=== PATIENT | male | born 1965 | race Caucasian/White ===

== ENCOUNTER 2017-09-17 03:31 | Emergency (ER) | payer OTHER ==
[~2017-09-17] VITALS: Ht 177.8 cm; Wt 86.2 kg
--- NOTE | 2017-09-17 05:53 | ED Chest Pain ---
General Chief Complaint: General Problems/Pain Stated Complaint: CP Nursing Triage Note: patient states that after drinking a pot of coffee before work be had 3 brief pains in his left chest. this lasted approximately one second. Nursing Sepsis Screen: No Definite Risk Source: patient Exam Limitations: no limitations History of Present Illness Time seen by provider: 05:42 Initial Comments Patient presents to ER by private conveyance with chief complaint that he had some chest pain tonight. He went to work around 11 had taken a 325 mg aspirin at that time since he started that 3 weeks ago because he had a chest pain similar to this and got him worried restarted aspirin. He had a sharp twinge like a stabbing pain in the center of his chest lasted a few seconds when away and then was followed by another one. It Was not accompanied by cough, nausea, radiating pain, numbness, weakness, sweats, shortness of breath. He has no personal history of cardiac disease. He's never followed by Dr. Michele is not obviously high blood pressure or thyroid or diabetes. He says he has been healthy his whole life. After he started experiencing the chest pains indicative second aspirin about 1:30 in the morning. Approximate 4 hours ago. Allergies and Home Medications Allergies Coded Allergies: No Known Drug Allergies (Unverified , 09/17/17) Review of Systems Constitutional: No chills, No fever, No malaise Respiratory: Denies Cough, Denies Shortness of Air Cardiovascular: See HPI, Chest Pain, Denies Edema, Denies Palpitations, Denies Syncope Gastrointestinal: Denies Abdomen Distended, Denies Abdominal Pain, Denies Constipated, Denies Diarrhea, Denies Nausea Musculoskeletal: No back pain, No joint pain Skin: No pruritus, No rash Psychiatric/Neurological: Denies Headache, Denies Numbness, Denies Paresthesia Past Qclshjt-Ghrako-Eavyql Hx Patient Social History Alcohol Use: Denies Use Recreational Drug Use: No Smoking Status: Current Everyday Smoker Type Used: Cigarettes 2nd Hand Smoke Exposure: Yes Recent Foreign Travel: No Contact w/Someone Who Travel: No Recent Infectious Disease Expo: No Recent Hopitalizations: No Physical Abuse: No Sexual Abuse: No Seasonal Allergies Seasonal Allergies: No Surgeries History of Surgeries: No Respiratory History of Respiratory Disorde: No Cardiovascular History of Cardiac Disorders: No Neurological History of Neurological Disord: No Genitourinary History of Genitourinary Disor: No Gastrointestinal History of Gastrointestinal Di: No Musculoskeletal History of Musculoskeletal Dis: No Endocrine History of Endocrine Disorders: No HEENT History of HEENT Disorders: No Cancer History of Cancer: No Psychosocial History of Psychiatric Problem: No Suicide Risk Score: 0 Integumentary History of Skin or Integumenta: No Blood Transfusions History of Blood Disorders: No Physical Exam Vital Signs Vital Sign - Last 12Hours 09/17/17 03:45 Temp 98.0 Pulse 97 Resp 20 B/P (MAP) 130/95 (107) Pulse Ox 98 O2 Delivery Simple Mask Capillary Refill : Less Than 3 Seconds General Appearance: No Apparent Distress, WD/WN HEENT: PERRL/EOMI, Pharynx Normal Neck: Normal Inspection, Non Tender Respiratory: Chest Non Tender, Lungs Clear, Normal Breath Sounds, No Accessory Muscle Use, No Respiratory Distress Cardiovascular: Regular Rate, Rhythm, No Edema, No Gallop, No JVD, No Murmur, Normal Peripheral Pulses Gastrointestinal: Non Tender, Soft Neurologic/Psychiatric: Alert, Oriented x3 Skin: Normal Color, Warm/Dry Progress/Results/Core Measures Results/Orders Lab Results Laboratory Tests Test 09/17/17 05:57 Range/Units White Blood Count 5.7 4.3-11.0 10^3/uL Red Blood Count 4.96 4.35-5.85 10^6/uL Hemoglobin 15.9 13.3-17.7 G/DL Hematocrit 45 40-54 % Mean Corpuscular Volume 90 80-99 FL Mean Corpuscular Hemoglobin 32 25-34 PG Mean Corpuscular Hemoglobin Concent 36 32-36 G/DL Red Cell Distribution Width 12.4 10.0-14.5 % Platelet Count 254 130-400 10^3/uL Mean Platelet Volume 9.9 7.4-10.4 FL Neutrophils (%) (Auto) 71 42-75 % Lymphocytes (%) (Auto) 23 12-44 % Monocytes (%) (Auto) 5 0-12 % Eosinophils (%) (Auto) 1 0-10 % Basophils (%) (Auto) 1 0-10 % Neutrophils # (Auto) 4.0 1.8-7.8 X 10^3 Lymphocytes # (Auto) 1.3 1.0-4.0 X 10^3 Monocytes # (Auto) 0.3 0.0-1.0 X 10^3 Eosinophils # (Auto) 0.0 0.0-0.3 10^3/uL Basophils # (Auto) 0.0 0.0-0.1 10^3/uL Prothrombin Time 12.8 12.2-14.7 SEC INR Comment 1.0 0.8-1.4 Activated Partial Thromboplast Time 29 24-35 SEC Sodium Level 141 135-145 MMOL/L Potassium Level 4.0 3.6-5.0 MMOL/L Chloride Level 105 98-107 MMOL/L Carbon Dioxide Level 25 21-32 MMOL/L Anion Gap 11 5-14 MMOL/L Blood Urea Nitrogen 11 7-18 MG/DL Creatinine 0.93 0.60-1.30 MG/DL Estimat Glomerular Filtration Rate > 60 BUN/Creatinine Ratio 12 Glucose Level 106 H 70-105 MG/DL Calcium Level 9.9 8.5-10.1 MG/DL Magnesium Level 2.1 1.8-2.4 MG/DL Total Bilirubin 0.4 0.1-1.0 MG/DL Aspartate Amino Transf (AST/SGOT) 20 5-34 U/L Alanine Aminotransferase (ALT/SGPT) 27 0-55 U/L Alkaline Phosphatase 70 40-136 U/L Myoglobin 36.5 10.0-92.0 NG/ML Troponin I < 0.30 <0.30 NG/ML Total Protein 7.9 6.4-8.2 GM/DL Albumin 4.6 H 3.2-4.5 GM/DL My Orders Orders - HECTOR,SHAAN J Cbc With Automated Diff (09/17/17 05:47) Magnesium (09/17/17 05:47) Chest 1 View, Ap/Pa Only (09/17/17 05:47) Ekg Tracing (09/17/17 05:47) Cardiac Profile 1 (09/17/17 05:47) Comprehensive Metabolic Panel (09/17/17 05:47) Myoglobin Serum (09/17/17 05:47) Protime With Inr (09/17/17 05:47) Partial Thromboplastin Time (09/17/17 05:47) O2 (09/17/17 05:47) Monitor-Rhythm Ecg Trace Only (09/17/17 05:47) Lipid Panel (09/18/17 06:00) Saline Lock/Iv-Start (09/17/17 05:47) Vital Signs/I&O Vital Sign - Last 12Hours 09/17/17 09/17/17 03:45 06:09 Temp 98.0 Pulse 97 Resp 20 B/P (MAP) 130/95 (107) Pulse Ox 98 97 O2 Delivery Simple Mask Room Air Blood Pressure Mean: 107 Progress Note : Time: 06:21 Progress Note Patient's last chest pain was about 4 hours ago so we'll get a EKG and troponin and if it's negative we'll set him up with cardiology for an outpatient workup of his heart. Seems low risk for cardio genic pain ECG Initial ECG Impression Date: Sep 17, 2017 Initial ECG Impression Time: 05:47 Initial ECG Rate: 68 Initial ECG Rhythm: Normal Sinus Initial ECG Intervals: Normal Initial ECG Impression: Normal, Nonspecific Changes Initial ECG Comparisson: No Previous ECG Available Comment No T-wave elevation or depression. Diagnostic Imaging Diagonstic Imaging: Xray Plain Films/CT/US/NM/MRI: chest (2v) Comments No acute cardiopulmonary processes noted. 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 Departure Impression Impression: Primary Impression: Chest pain in adult Disposition: 01 HOME, SELF-CARE Condition: Stable Departure-Patient Inst. Decision time for Depature: 07:15 Referrals: NO,LOCAL PHYSICIAN (PCP/Family) Primary Care Physician Patient Instructions: Chest Pain (DC) Add. Discharge Instructions: Please follow-up with Dr. Diop's clinic. [phone] Continue to take a daily aspirin 81 mg. All discharge instructions reviewed with patient and/or family. Voiced understanding. Work/School Note: Work Release Form Date Seen in the Emergency Department: Sep 17, 2017 Return to Work: Sep 18, 2017 Restrictions: No Restrictions Copy Copies To 1: ALEC DIOP MD [facility] SHAAN YOUNG Sep 17, 2017 05:53
[2017-09-17 06:03] LABS: BASOPHILS % (AUTO) 1 % (0-10); EOSINOPHILS % (AUTO) 1 % (0-10); LYMPHOCYTES # (AUTO) 1.3 X 10^3 (1.0-4.0); LYMPHOCYTES % (AUTO) 23 % (12-44); MEAN CORPUSCULAR HEMOGLOBIN 32 PG (25-34); MEAN CORPUSCULAR HGB CONC 36 G/DL (32-36); MEAN CORPUSCULAR VOLUME 90 FL (80-99); MEAN PLATELET VOLUME 9.9 FL (7.4-10.4); MONOCYTES # (AUTO) 0.3 X 10^3 (0.0-1.0); MONOCYTES % (AUTO) 5 % (0-12); NEUTROPHILS % (AUTO) 71 % (42-75); PLATELET COUNT 254 10^3/uL (130-400); RED BLOOD COUNT 4.96 10^6/uL (4.35-5.85); RED CELL DISTRIBUTION WIDTH 12.4 % (10.0-14.5); WHITE BLOOD COUNT 5.7 10^3/uL (4.3-11.0)
[2017-09-17 06:13] LABS: PROTHROMBIN TIME PATIENT 12.8 SEC (12.2-14.7)
[2017-09-17 06:33] LABS: ALANINE AMINOTRANSFERASE 27 U/L (0-55); ALBUMIN 4.6 GM/DL (3.2-4.5); ANION GAP 11 MMOL/L (5-14); ASPARTATE AMINO TRANSFERASE 20 U/L (5-34); BILIRUBIN,TOTAL 0.4 MG/DL (0.1-1.0); BLOOD UREA NITROGEN 11 MG/DL (7-18); BUN/CREATININE RATIO 12; CALCIUM 9.9 MG/DL (8.5-10.1); CARBON DIOXIDE 25 MMOL/L (21-32); CHLORIDE 105 MMOL/L (98-107); CREATININE SERUM 0.93 MG/DL (0.60-1.30); GFR ESTIMATED > 60; GLUCOSE 106 MG/DL (70-105); MAGNESIUM 2.1 MG/DL (1.8-2.4); SODIUM 141 MMOL/L (135-145); TOTAL PROTEIN 7.9 GM/DL (6.4-8.2)
[2017-09-17 06:45] LABS: MYOGLOBIN SERUM 36.5 NG/ML (10.0-92.0)
--- NOTE | 2017-09-17 06:54 | Diagnostic Imaging Report ---
INDICATION: Chest pain. Portable upright AP view of the chest is obtained. COMPARISON: No previous study is available for comparison at this time. FINDINGS: Heart size and pulmonary vasculature are within normal limits, and the lungs are clear, bilaterally. IMPRESSION: Unremarkable chest. Dictated by: Dictated on workstation # [id number]
[2017-09-17 07:30] VITALS: BP 128/98
== END 2017-09-17 07:28 | disposition home or self-care (01) ==
LOC: EDUNIT# 03:31 → ER 03:34
DX: R07.9 Chest pain, unspecified (principal); F17.210 Nicotine dependence, cigarettes, uncomplicated
CPT/HCPCS: 36415; 71010; 80053; 83735; 83874; 84484; 85025; 85610; 85730; 93005; 93041

== ENCOUNTER → 2017-09-25 | Outpatient (CLI) | payer OTHER | LOC: CARD 11:28 | PROVIDERS: ATTEND Internal Medicine Cardiovascular Disease | DX: R07.89 Other chest pain (principal); Z82.49 Family history of ischemic heart disease and other diseases of the circulatory system; Z72.0 Tobacco use | CPT/HCPCS: 93306 ==

== ENCOUNTER → 2017-09-29 | Outpatient (CLI) | payer OTHER ==
[~2017-09-29] VITALS: Ht 177.8 cm; Wt 86.2 kg
[~2017-09-29] MED LIST: CATHETER FLUSH 10 ML SYR IV PRN
[2017-09-29 12:34] VITALS: BP 133/95
[2017-09-29 12:40] VITALS: BP 151/99
--- NOTE | 2017-09-29 20:46 | STRESS TEST ---
DATE OF SERVICE: 09/29/2017 RESTING AND POST-EXERCISE TECHNETIUM-99M TETROFOSMIN SPECT CT IMAGING ORDERING PHYSICIAN: Dr. Diop. CLINICAL DIAGNOSIS: Chest discomfort. Baseline images were carried out after injection of 10.74 mCi of technetium-99m Tetrofosmin. This was followed by exercise on a treadmill. Blaise protocol was employed. He exercised for a total of 6 minutes and 40 seconds. Test was stopped because of fatigue and leg discomfort. He attained 102% of maximum predicted heart rate. After, he had attained 85% of maximum predicted heart rate, 33 mCi of technetium-99m Tetrofosmin were injected and the exercise was continued for another minute. The electrocardiogram showed sinus rhythm with isolated premature ventricular contractions at baseline. With exercise, premature ventricular contractions were not seen. At peak exercise, there was approximately [address] segment depression. Review of images at rest and following stress does not indicate any significant perfusion defects consistent with significant myocardial ischemia or infarction. Gated images show normal global left ventricular systolic function with normal regional wall motion. Left ventricular ejection fraction is calculated to be 53%. Left ventricular end diastolic volume is 71 mL. CONCLUSION: 1. This study does not indicate evidence of significant myocardial ischemia or infarction. 2. Normal regional wall motion. 3. Normal global left ventricular systolic function with a calculated ejection fraction of 53%. 4. Isolated premature ventricular contractions were seen during rest, but not during stress. Job ID: [id number] DocumentID: [id number] Dictated Date: 09/29/2017 15:59:20 Manager Process Excellence Date: 09/29/2017 18:53:15 Dictated By: ALEC DIOP MD, MA, FACP, FACC, MTDD
== END ==
LOC: CARD 11:31
PROVIDERS: ATTEND Internal Medicine Cardiovascular Disease
DX: R07.89 Other chest pain (principal); Z82.49 Family history of ischemic heart disease and other diseases of the circulatory system; Z72.0 Tobacco use
CPT/HCPCS: 78452; 93017

== ENCOUNTER 2019-07-02 09:13 | Inpatient (IN) | payer OTHER ==
[~2019-07-02] VITALS: Ht 172.7 cm; Wt 85.7 kg
[2019-07-02] VITALS (10 sets, daily range): BP systolic 111–141; BP diastolic 74–92
[2019-07-02] MEDS ORDERED: ASPIRIN 81 MG CHEW (CHILDREN'S ASA) PO ONE (09:30)
[2019-07-02] MEDS ORDERED: NITROGLYCERIN 0.4 MG SL TABS BTL 25'S SL PRN (09:30)
[2019-07-02 09:32] LABS: BASOPHILS % (AUTO) 0 % (0-10); EOSINOPHILS # (AUTO) 0.1 10^3/uL (0.0-0.3); EOSINOPHILS % (AUTO) 1 % (0-10); HEMATOCRIT 45 % (40-54); HEMOGLOBIN 16.2 G/DL (13.3-17.7); LYMPHOCYTES # (AUTO) 1.7 X 10^3 (1.0-4.0); LYMPHOCYTES % (AUTO) 26 % (12-44); MEAN CORPUSCULAR HEMOGLOBIN 32 PG (25-34); MEAN CORPUSCULAR HGB CONC 36 G/DL (32-36); MEAN CORPUSCULAR VOLUME 89 FL (80-99); MEAN PLATELET VOLUME 10.5 FL (7.4-10.4); MONOCYTES # (AUTO) 0.3 X 10^3 (0.0-1.0); MONOCYTES % (AUTO) 5 % (0-12); NEUTROPHILS # (AUTO) 4.5 X 10^3 (1.8-7.8); NEUTROPHILS % (AUTO) 68 % (42-75); PLATELET COUNT 228 10^3/uL (130-400); RED CELL DISTRIBUTION WIDTH 12.5 % (10.0-14.5); WHITE BLOOD COUNT 6.6 10^3/uL (4.3-11.0)
[2019-07-02 09:51] LABS: ALANINE AMINOTRANSFERASE 18 U/L (0-55); ALBUMIN 4.8 GM/DL (3.2-4.5); ALKALINE PHOSPHATASE 73 U/L (40-136); BILIRUBIN,TOTAL 0.4 MG/DL (0.1-1.0); BUN/CREATININE RATIO 15; CALCIUM 9.3 MG/DL (8.5-10.1); CARBON DIOXIDE 23 MMOL/L (21-32); CHLORIDE 105 MMOL/L (98-107); CREATININE SERUM 1.03 MG/DL (0.60-1.30); GFR ESTIMATED > 60; GLUCOSE 110 MG/DL (70-105); MAGNESIUM 2.2 MG/DL (1.6-2.4); POTASSIUM 4.2 MMOL/L (3.6-5.0); SODIUM 138 MMOL/L (135-145); TOTAL PROTEIN 7.7 GM/DL (6.4-8.2)
--- NOTE | 2019-07-02 09:55 | NUR ---
HR 89 SAO2 94% B/P 124/82 PAIN 0/10
--- NOTE | 2019-07-02 09:58 | ED Chest Pain ---
General Chief Complaint: Chest Pain Stated Complaint: CHEST PAIN Nursing Triage Note: AMB TO ROOM REPORTS HAD ONSET OF CHEST AROUND 7A WHILE AT [facility] IN CENTER OF CHEST WITH RADIATION ACROSS CHEST AND A CRAMPING FEELING IN BACK. ON ADMIT ON PAIN IN CHEST CRAMPING FEELING IN BACK Nursing Sepsis Screen: No Definite Risk Source: patient Exam Limitations: no limitations History of Present Illness Date Seen by Provider: Jul 02, 2019 Time Seen by Provider: 09:14 Initial Comments This 53-year-old gentleman presents to the emergency room with pain in the sternal and left chest that started around 07:30 this morning. He was at the [employer] gambling and losing money when the pain started. He also has a pain medial to the left scapula that he states feels like a cramp to muscle. He states the pain in his chest has now dissipated but he still has pain in the back that he rates about a 4/10. He took 162 mg of aspirin at home. He has not noted any exacerbating factors. Taking a deep breath seems to improve the pain. He had a negative stress test by Dr. Diop September last year. He smokes heavily and drinks coffee heavily. He has no personal history of cardiovascular disease. Allergies and Home Medications Allergies Coded Allergies: No Known Drug Allergies (Unverified , 09/17/17) Home Medications No Active Prescriptions or Reported Meds Patient Home Medication List Home Medication List Reviewed: Yes Review of Systems Review of Systems Constitutional: no symptoms reported EENTM: No Symptoms Reported Respiratory: See HPI Cardiovascular: See HPI Gastrointestinal: No Symptoms Reported Genitourinary: No Symptoms Reported Musculoskeletal: see HPI Skin: no symptoms reported Psychiatric/Neurological: No Symptoms Reported Endocrine: No Symptoms Reported Hematologic/Lymphatic: No Symptoms Reported Past Krxewvo-Pzgwbd-Dhrbzq Hx Past Med/Social Hx: Reviewed Nursing Past Med/Soc Hx Patient Social History Alcohol Use: Denies Use Recreational Drug Use: No Smoking Status: Current Everyday Smoker Type Used: Cigarettes 2nd Hand Smoke Exposure: Yes Recent Foreign Travel: No Contact w/Someone Who Travel: No Recent Infectious Disease Expo: No Recent Hopitalizations: No Seasonal Allergies Seasonal Allergies: No Past Medical History Surgeries: No Respiratory: No Cardiac: No Neurological: No Genitourinary: No Gastrointestinal: No Musculoskeletal: No Endocrine: No HEENT: No Cancer: No Psychosocial: No Integumentary: No Blood Disorders: No Physical Exam Vital Signs Vital Signs - First Documented 07/02/19 09:13 Temp 36.8 Pulse 93 Resp 18 B/P (MAP) 149/106 (120) Pulse Ox 96 O2 Delivery Room Air Capillary Refill : Less Than 3 Seconds Height, Weight, BMI Height: 5'10.00" Weight: 190lbs. 0.0oz. 86.887385si; 28.00 BMI Method:Stated General Appearance: No Apparent Distress, WD/WN, Thin HEENT: PERRL/EOMI, Normal ENT Inspection Neck: Normal Inspection Respiratory: Chest Non Tender, Lungs Clear, Normal Breath Sounds, No Accessory Muscle Use, No Respiratory Distress Cardiovascular: Regular Rate, Rhythm, No Edema, No Murmur, Normal Peripheral Pulses Gastrointestinal: Normal Bowel Sounds, Non Tender, Soft Extremity: Normal Capillary Refill, Normal Inspection, No Calf Tenderness, No Pedal Edema, Other (negative Hung) Neurologic/Psychiatric: Alert, Oriented x3, No Motor/Sensory Deficits, Normal Mood/Affect, relocation specialist II-XII Norm as Tested Skin: Normal Color, Warm/Dry Progress/Results/Core Measures Results/Orders Lab Results Laboratory Tests Test 07/02/19 09:26 Range/Units White Blood Count 6.6 4.3-11.0 10^3/uL Red Blood Count 5.03 4.35-5.85 10^6/uL Hemoglobin 16.2 13.3-17.7 G/DL Hematocrit 45 40-54 % Mean Corpuscular Volume 89 80-99 FL Mean Corpuscular Hemoglobin 32 25-34 PG Mean Corpuscular Hemoglobin Concent 36 32-36 G/DL Red Cell Distribution Width 12.5 10.0-14.5 % Platelet Count 228 130-400 10^3/uL Mean Platelet Volume 10.5 H 7.4-10.4 FL Neutrophils (%) (Auto) 68 42-75 % Lymphocytes (%) (Auto) 26 12-44 % Monocytes (%) (Auto) 5 0-12 % Eosinophils (%) (Auto) 1 0-10 % Basophils (%) (Auto) 0 0-10 % Neutrophils # (Auto) 4.5 1.8-7.8 X 10^3 Lymphocytes # (Auto) 1.7 1.0-4.0 X 10^3 Monocytes # (Auto) 0.3 0.0-1.0 X 10^3 Eosinophils # (Auto) 0.1 0.0-0.3 10^3/uL Basophils # (Auto) 0.0 0.0-0.1 10^3/uL Prothrombin Time 13.0 12.2-14.7 SEC INR Comment 1.0 0.8-1.4 Activated Partial Thromboplast Time 31 24-35 SEC Sodium Level 138 135-145 MMOL/L Potassium Level 4.2 3.6-5.0 MMOL/L Chloride Level 105 98-107 MMOL/L Carbon Dioxide Level 23 21-32 MMOL/L Anion Gap 10 5-14 MMOL/L Blood Urea Nitrogen 15 7-18 MG/DL Creatinine 1.03 0.60-1.30 MG/DL Estimat Glomerular Filtration Rate > 60 BUN/Creatinine Ratio 15 Glucose Level 110 H 70-105 MG/DL Calcium Level 9.3 8.5-10.1 MG/DL Corrected Calcium 8.5-10.1 MG/DL Magnesium Level 2.2 1.6-2.4 MG/DL Total Bilirubin 0.4 0.1-1.0 MG/DL Aspartate Amino Transf (AST/SGOT) 18 5-34 U/L Alanine Aminotransferase (ALT/SGPT) 18 0-55 U/L Alkaline Phosphatase 73 40-136 U/L Myoglobin 76.0 10.0-92.0 NG/ML Troponin I < 0.028 <0.028 NG/ML Total Protein 7.7 6.4-8.2 GM/DL Albumin 4.8 H 3.2-4.5 GM/DL My Orders Orders - DANO HOFFMANN MD Cbc With Automated Diff (07/02/19) Magnesium (07/02/19) Chest 1 View, Ap/Pa Only (07/02/19) Ekg Tracing (07/02/19) Cardiac Profile 1 (07/02/19) Comprehensive Metabolic Panel (07/02/19) Myoglobin Serum (07/02/19) Protime With Inr (07/02/19) Partial Thromboplastin Time (07/02/19) O2 (07/02/19:) Monitor-Rhythm Ecg Trace Only (10/5/19 09:25) Lipid Panel (07/03/19 06:00) Ed Iv/Invasive Line Start (07/02/19 09:25) Nitroglycerin 0.4 Mg Btl 25's (Nitrostat (07/02/19 09:30) Aspirin Chewable Tablet (Baby Aspirin Ch (07/02/19 09:30) Metoprolol Tartrate Injection (Lopressor (07/02/19 10:30) Medications Given in ED Current Medications Medications Dose Ordered Sig/Julieth Route Start Time Stop Time Status Last Admin Dose Admin Aspirin 162 mg ONCE ONCE PO 07/02/19 09:30 07/02/19 09:31 DC 07/02/19 09:31 162 MG Metoprolol Tartrate 5 mg ONCE ONCE IV 07/02/19 10:30 07/02/19 10:31 DC 07/02/19 10:40 5 MG Nitroglycerin 0.4 mg UD PRN SL 07/02/19 09:30 07/02/19 09:31 0.4 MG Vital Signs/I&O 07/02/19 09:13 Temp 36.8 Pulse 93 Resp 18 B/P (MAP) 149/106 (120) Pulse Ox 96 O2 Delivery Room Air Blood Pressure Mean: 120 Progress Progress Note #1: Progress Note Patient was given an additional 162 mg of aspirin. Nitroglycerin times one completely relieved his pain. Progress Note #2: Time: 10:38 Progress Note Patient remains free of pain at this time. Case was discussed with Dr. Arce who would like Lopressor 5 mg IV administered. He would like patient admitted to his service on a medical telemetry bed. Patient is agreeable to this plan. Initial ECG Impression Date: Jul 02, 2019 Initial ECG Impression Time: 09:15 Initial ECG Rate: 95 Comment Sinus rhythm with bigeminy. Borderline ST depression in the anterior leads. No abnormal intervals or axis deviation. Diagnostic Imaging Diagonstic Imaging: Xray Plain Films/CT/US/NM/MRI: chest Comments Chest x-ray viewed by me and report reviewed. See report below: NAME: [facility] REC#: [id number] PT STATUS: REG ER : 1965 PHYSICIAN: DANO HOFFMANN MD ADMIT DATE: 07/02/19/ER * Signed Date of Exam:07/02/19 CHEST 1 VIEW, AP/PA ONLY EXAMINATION: Chest radiograph, portable AP view. DATE: 07/02/2019 9:55 AM hours. INDICATION: 53-year-old male, new onset chest pain. COMPARISON: September 17, 2017. FINDINGS: Heart size and mediastinal contours are unremarkable. There is no identified pneumothorax. There is no large pleural effusion. There is no identified focal airspace consolidation. IMPRESSION: No identified acute cardiopulmonary abnormality. Dictated by: Dictated on workstation # [id number] Dict: 07/02/19 0956 Trans: 07/02/19 1011 [facility] [id number] Interpreted by: OLLIE HOLGUIN MD Electronically signed by: OLLIE HOLGUIN MD 07/02/19 1011 Departure Communication (Admissions) Time/Spoke to Admitting Phy: 10:20 Dr. Arce Impression Primary Impression: Chest pain Qualified Codes: R07.9 - Chest pain, unspecified Additional Impression: Ventricular bigeminy Disposition: ADMITTED INPATIENT Condition: Improved Admissions Decision to Admit Reason: Admit from ER (General) Decision to Admit/Date: Jul 02, 2019 Time/Decision to Admit Time: 10:20 Departure-Patient Inst. Referrals: NO,LOCAL PHYSICIAN (PCP/Family) Primary Care Physician Scripts No Active Prescriptions or Reported Meds DANO HOFFMANN MD Jul 02, 2019 09:58
[2019-07-02] MEDS ORDERED: meTOprolol 5 MG/5 ML (LOPRESSOR) VIAL IV ONE (10:30)
--- NOTE | 2019-07-02 10:47 | NUR ---
CALLED FOR BED
--- NOTE | 2019-07-02 10:56 | NUR ---
PATIENT CONVERTED TO NSR.
--- NOTE | 2019-07-02 12:05 | Cardiology History & Physical ---
HPI-Cardiology Cardiology Consultation Date of Consultation 07/02/19 Date of Admission Time Seen by Provider: 12:02 Indication: chest pain HPI 53 years old gentleman with no signal can past medical history started to have recurrent chest pain this morning, described it as dull achiness in the upper retrosternal area and left sided shoulder and back pain. Waxing and waning, came into the emergency room with mild upper chest pain relieved by nitroglycerin, during the hospital emergency room stay he was noted to have frequent PVCs and ventricular bigeminy. Currently feeling well. No active pain. No palpitation. No syncope, had a very mild chest pain about 2 years ago had a stress test and it was negative. PMH-Cardiology Seasonal Allergies Seasonal Allergies: No Surgeries No Respiratory No Cardiovascular No Neurological No Genitourinary No Gastrointestinal No Musculoskeletal No Endocrine No HEENT No Cancer No Psychosocial No Integumentary No Blood Transfusions No Social History Patient Social History Marrital Status: Employed/Student: employed Alcohol Use: Denies Use Recreational Drug Use: No Smoking: Current every day smoker Recent Foreign Travel: No Contact w/other who traveled: No Recent Infectious Disease Expo: No Family Hx Other family history of heart disease with his sister who had a stent in her 50s ROS-Cardiology Review of Systems General: No Chills, No Night Sweats, No Fatigue, No Malaise, No Appetite HEENT: No Head Aches, No Visual Changes, No Eye Pain, No Ear Pain, No Dysphasia, No Sinus Congestion, No Post Nasal Drip, No Sore Throat Pulmonary: No Dyspnea, No Cough, No Pleuritic Chest Pain Cardiovascular: Chest Pain; No: Palpitations, Orthopnea, Paroxysmal Noc. Dyspnea, Edema, Lt Headedness Gastrointestinal: Nausea; No: Vomiting, Abdominal Pain, Diarrhea, Constipation, Melena, Hematochezia Genitourinary: No Dysuria, No Frequency, No Incontinence, No Hematuria, No Retention Musculoskeletal: No: neck pain, shoulder pain, arm pain, back pain, hand pain, leg pain, foot pain Neurological: No: Weakness, Numbness, Incoordination, Change in speech, Confusion, Seizures Home Medications & Allergies Allergies: Coded Allergies: No Known Drug Allergies (Unverified , 09/17/17) Home Medication List Reviewed: Yes Exam-Cardiology Vital Signs Vital Signs Date Time Temp Pulse Resp B/P (MAP) Pulse Ox O2 Delivery O2 Flow Rate FiO2 07/02/19 11:29 36.7 54 16 132/84 97 Room Air Exam General Appearance: Alert, Oriented X3, Cooperative, No Acute Distress HEENT: Atraumatic, PERRLA Respiratory: Clear to Auscultation, Normal Air Movement Cardiovascular: Regular Rate, Normal S1, Normal S2, No Murmurs Abdominal: Normal Bowel Sounds, Soft, No Tenderness, No Hepatosplenomegaly, No Masses Extremities: No Clubbing, No Cyanosis, No Edema, Normal Pulses, No Tenderness/Swelling Skin: No Rashes, No Breakdown, No Significant Lesion Neuro: Normal Gait, Normal Speech, Strength at 5/5 X4 Ext, Normal Tone, Sensation Intact Psych/Mental Status: Mental Status NL, Mood NL Results Labs Labs Laboratory Tests 07/02/19 09:26: White Blood Count 6.6, Red Blood Count 5.03, Hemoglobin 16.2, Hematocrit 45, Mean Corpuscular Volume 89, Mean Corpuscular Hemoglobin 32, Mean Corpuscular Hemoglobin Concent 36, Red Cell Distribution Width 12.5, Platelet Count 228, Mean Platelet Volume 10.5H, Neutrophils (%) (Auto) 68, Lymphocytes (%) (Auto) 26, Monocytes (%) (Auto) 5, Eosinophils (%) (Auto) 1, Basophils (%) (Auto) 0, Neutrophils # (Auto) 4.5, Lymphocytes # (Auto) 1.7, Monocytes # (Auto) 0.3, Eosinophils # (Auto) 0.1, Basophils # (Auto) 0.0, Prothrombin Time 13.0, INR Comment 1.0, Activated Partial Thromboplast Time 31, Sodium Level 138, Potassium Level 4.2, Chloride Level 105, Carbon Dioxide Level 23, Anion Gap 10, Blood Urea Nitrogen 15, Creatinine 1.03, Estimat Glomerular Filtration Rate > 60, BUN/Creatinine Ratio 15, Glucose Level 110H, Calcium Level 9.3, Corrected Calcium , Magnesium Level 2.2, Total Bilirubin 0.4, Aspartate Amino Transf (AST/SGOT) 18, Alanine Aminotransferase (ALT/SGPT) 18, Alkaline Phosphatase 73, Myoglobin 76.0, Troponin I < 0.028, Total Protein 7.7, Albumin 4.8H A/P-Cardiology Admission Diagnosis Chest pain PVC Family history of atherosclerosis Hypertension Admission Status: Observation Assessment/Plan Chest pain nonspecific etiology, atypical in presentation, responded to nitroglycerin, continue to monitor cardiac enzymes and EKG, had a stress test done in September 2017 and it was normal, we'll consider repeating stress test as an outpatient if his cardiac enzymes continue to be negative Frequent PVCs, ventricular bigeminy, monitor on telemetry and start low-dose beta blockers and evaluate tolerance and response Hypertension, no previous history of hypertension, I started him on beta blockers and I will continue monitoring Mild nausea, questionable gastroesophageal reflux disease, started on Protonix Family history of heart disease Clinical Quality Measures AMI/AHF: ASA po Prior to arrival: Yes (2 [employer]) BEE MATT MD Jul 02, 2019 12:05
[2019-07-02] MEDS ORDERED: PANTOPRAZOLE 40 MG (PROTONIX) TAB PO SCH (12:15)
[2019-07-02] MEDS ORDERED: morphine INJ 4 MG/ML 1 ML (VIAL/SYRINGE) IVP PRN (13:00)
--- NOTE | 2019-07-02 16:22 | NUR ---
DR MATT NOTIFIED OF CRITICAL TROPONIN 2.959. ORDER RECEIVED FOR PT TO BE NPO AFTER MIDNIGHT.
[2019-07-02] MEDS ORDERED: ENOXAPARIN 40 MG/0.4 ML (LOVENOX) SYR SC SCH (18:15)
[2019-07-03 03:41] VITALS: BP 129/87
--- NOTE | 2019-07-03 06:30 | NUR ---
CRITICAL LAB RESULT GIVEN TROPONIN 9.[address] MATT NOTIFIED OF CRITICAL RESULT AT 0623. NO NEW ORDERS AT THIS TIME.
[2019-07-03] MEDS ORDERED: NS IV 1000 ML 1,000 ML IV SCH ×2 (06:45→08:36)
--- NOTE | 2019-07-03 06:45 | NUR ---
DR. MATT AT BEDSIDE WITH PATIENT EXPLAINING HEART CATH PROCEDURE TO PT. CONSENT SIGNED. GRIDDLE COOK NOTIFIED TO CALL CATH TEAM.
--- NOTE | 2019-07-03 06:46 | Cardiology Progress Note ---
Subjective Date Seen by Provider: Jul 03, 2019 Time Seen by Provider: 06:45 Subjective/Events-last exam Patient is laying down in bed, denied any chest pain, noted to have elevated troponin level. His second troponin was elevated, patient already had his lungs, I decided to wait overnight unless he became symptomatic. Review of Systems General: No Chills, No Night Sweats, No Fatigue, No Malaise, No Appetite, No Other HEENT: No Head Aches, No Visual Changes, No Eye Pain, No Ear Pain, No Dysphasia, No Sinus Congestion, No Post Nasal Drip, No Sore Throat, No Other Pulmonary: No Dyspnea, No Cough, No Pleuritic Chest Pain, No Other Cardiovascular: No: Chest Pain, Palpitations, Orthopnea, Paroxysmal Noc. Dyspnea, Edema, Lt Headedness, Other Objective-Cardiology Exam Last Set of Vital Signs Vital Signs 07/03/19 07/03/19 07/03/19 03:41 07:00 07:30 Temp 36.7 Pulse 74 Resp 18 B/P (MAP) 129/87 (101) Pulse Ox 93 O2 Delivery Room Air Capillary Refill : Less Than 3 Seconds I&O Intake and Output 07/03/19 00:00 Intake Total 1620 ml Output Total 1975 ml Balance -355 ml Intake Oral 1620 ml Output Urine Total 1975 ml Daily Weight Change No No General: Alert, Oriented X3, Cooperative, No Acute Distress HEENT: Atraumatic, PERRLA Lungs: Clear to Auscultation, Normal Air Movement Heart: Regular Rate, Normal S1, Normal S2, No Murmurs Abdomen: Normal Bowel Sounds, Soft, No Tenderness, No Hepatosplenomegaly, No Masses Extremities: No Clubbing, No Cyanosis, No Edema, Normal Pulses, No Tenderness/Swelling Skin: No Rashes, No Breakdown, No Significant Lesion Neuro: Normal Gait, Normal Speech, Strength at 5/5 X4 Ext, Normal Tone, Sensation Intact Psych/Mental Status: Mental Status NL, Mood NL Results Lab Laboratory Tests 07/02/19 09:26 A/P-Cardiology Admission Diagnosis Chest pain PVC Family history of atherosclerosis Hypertension Assessment/Plan Non-ST elevation myocardial infarction, elevated troponin level, no acute EKG changes, no active chest pain, planning to proceed with cardiac catheterization possible PTCA Frequent PVCs, ventricular bigeminy, continue on beta blockers and monitor Hypertension, no previous history of hypertension, I started him on beta blockers and I will continue monitoring Mild nausea, questionable gastroesophageal reflux disease, started on Protonix Family history of heart disease Addendum May 13, 2019 at 835 a.m. Hospital course Patient was admitted with chest pain, EKG and cardiac enzymes were normal, chest pain has relieved, second set returned with abnormal troponin, did not have any chest pain, patient already 8 lunch, decided to schedule him for cardiac catheterization in the morning, third set was done early this morning and showed more elevation in troponin, continue to be chest pain-free. Cardiac catheterization carried out showing severe multivessel coronary artery disease, patient will be transferred to [facility] for evaluation for CABG. 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
--- NOTE | 2019-07-03 07:00 | Cardiac Procedure Note-CS/ASA ---
Pre-Procedure Note Pre-Op Procedure Note H&P Reviewed The H&P was reviewed, patient examined and no changes noted. Date H&P Reviewed: Jul 03, 2019 Time H&P Reviewed: 06:59 Conscious Sedation Pre-Proced Time 06:59 ASA Score 3 For ASA 3 and 4: Consider anesthesia and medical clearance. Also, for patients with a history of failed moderate sedation consider anesthesia. Airway Lungs Heart ASA score ASA 1: a normal healthy patient ASA 2: a patient with a mild systemic disease (mid diabetes, controlled hypertension, obesity x ASA 3: a patient with a severe systemic disease that limits activity (angina, COPD, prior Myocardial infarction) ASA 4: a patient with an incapacitating disease that is a constant threat to life (CHF, renal failure) ASA 5: a moribund patient not expected to survive 24 hrs. (ruptured aneurysm) ASA 6: a declared brain- patient whose organs are being harvested. For emergent operations, add the letter E after the classification Mallampati Classification Grade 3 Sedation Plan Analgesia, Amnesia, Plan communicated to team members, Discussed options with patient/fam, Discussed risks with patient/fam The patient is an appropriate candidate to undergo the planned procedure, sedation, and anesthesia. The patient immediately re-assessed prior to indication. BEE MATT MD Jul 03, 2019 06:59
[2019-07-03] MEDS ORDERED: LIDOCAINE 1% INJ 20 ML 20 ML VIAL ONE (07:21)
[2019-07-03] MEDS ORDERED: HEParin (CATH LAB) 2,000 ML IV ONE (07:21)
[2019-07-03] MEDS ORDERED: MIDAZOLAM 5 MG/5 ML (VERSED) VIAL ONE (07:31)
[2019-07-03] MEDS ORDERED: fentaNYL INJECTION 100 MCG/2 ML AMP ONE (07:31)
[2019-07-03] MEDS ORDERED: NS IV 1000 ML 0 ML ONE (07:32)
--- NOTE | 2019-07-03 07:49 | NUR ---
MORNING ASPIRIN, PROTONIX AND METOPROLOL NOT GIVEN BEFORE HEARTH CATH PER DR MATT'S ORDER
[2019-07-03 08:00] VITALS: BP 108/83
--- NOTE | 2019-07-03 08:40 | Cardiac Cath Report ---
Cardiac Cath Report Physician (s)/[employer]s) Physician BEE MATT MD Pre-Procedure Diagnosis Pre-Procedure Diagnosis: Non-ST elevation myocardial infarction Post-Procedure Note Procedure Start Date: Jul 03, 2019 Name of Procedure: Left heart catheterization Left ventriculogram Findings/Procedure Note PROCEDURE NOTE: 53 years old gentleman with no previous history admitted with acute chest pain, reporting improvement of chest pain on arrival to the hospital, EKG and cardiac enzymes were normal, he was admitted for observation during the hospital stay continue to be asymptomatic, second set of cardiac enzymes showed elevation in troponin, patient had ventricular bigeminy, started on beta blockers. Already ate lunch I decided to proceed with cardiac catheterization in the morning. Third set of enzymes was done early this morning and it was more elevation, discussed the management plan recommended cardiac catheterization. After explaining the procedure to the patient, all pros and cons were explained, all questions were answered. The patient signed the consent and then he was placed on the cardiac catheterization laboratory. Groin was prepped SL fashion local anesthesia was used. Sheath placed in the right femoral artery. Saumya right and left catheter were used to access the coronary system. Pigtail was used to access the left ventricular cavity. Left ventriculogram was done Aortic arch angiogram was done At the end of the procedure the sheath was removed. Closure device was used FINDINGS: Hemodynamics LV 103/11 end-diastolic pressure of 11 Aorta 109/69 mean of 84 ANATOMY: Left Main is free of obstructive disease Left Anterior Descending has severe disease at the midportion, the first diagonal artery has severe disease proximally Left Circumflex has moderate severe disease proximally, first obtuse marginal branch appeared to be occluded Right Coronory Artery has moderate severe disease at the midportion dominant artery LV Gram was done showing normal left ventricular size with estimated ejection fraction 50 percent Aorta evaluation done with aortic arch angiogram showing normal aortic arch, no dissection or aneurysm, normal innominate artery left carotid and left subclavian arteries CONCLUSION: 1. Severe multivessel coronary artery disease as described above 2. Normal left ventricular size with preserved systolic function estimated ejection fraction 50 percent 3. Normal aortic arch and great vessels of the neck DISCUSSION AND RECOMMENDATION: patient has multivessel disease, arrangement to transfer to [facility] for bypass surgery was made Hospital course Patient was admitted with chest pain, EKG and cardiac enzymes were normal, chest pain has relieved, second set returned with abnormal troponin, did not have any chest pain, patient already 8 lunch, decided to schedule him for cardiac catheterization in the morning, third set was done early this morning and showed more elevation in troponin, continue to be chest pain-free. Cardiac catheterization carried out showing severe multivessel coronary artery disease, patient will be transferred to [facility] for evaluation for CABG. Final diagnoses Non-ST elevation myocardial infarction Coronary artery disease PVC Hypertension Anesthesia Type: Conscious Sedation Estimated blood loss (mL): 15 ml Contrast Amount: 70 ml Total Radiation Dose: 420 mGy Post-Procedure Diagnosis Post-operative diagnosis: Non-ST elevation myocardial infarction Coronary artery disease Hypertension Hyperlipidemia BEE MATT MD Jul 03, 2019 08:40
[2019-07-03] MEDS ORDERED: PATIENT MAY USE OWN MEDS, ALL PO SCH (08:45)
[2019-07-03] MEDS ORDERED: ASPI-983 PO (08:48)
[2019-07-03] MEDS ORDERED: ATOR80TA76 PO (08:48)
[2019-07-03] MEDS ORDERED: METO-387 PO (08:48)
[2019-07-03 09:00] VITALS: BP 114/77
[2019-07-03] MEDS ORDERED: ASPIRIN E.C. 81 MG (ECOTRIN) TAB PO SCH (09:00)
--- NOTE | 2019-07-03 09:00 | NUR ---
PT ARRIVED ON UNIT AT 0848 POST CATH. PT TO BE TRANSFERRED TO [facility] FOR POSSIBLE BYPASS. CATH THROUGH R GRO[facility], 6FR SHEATH USED WITH MINX CLOSURE. PT RECEIVED 4 VERSED AND 100 OF FENTANYL DURING PROCEDURE. VITALS UPON ARRIVAL TO UNIT: TEMP 36.4; RESP 9; HR 64; BP 114/77; AND SPO2 94% ON ROOM AIR. PT TO GO TO ROOM 265 AT [facility]. CONTACTED NAGA DANIELS AT [facility] ICU TO GIVE REPORT. GAVE DIRECT NUMBER IN CASE HAS ANYMORE QUESTIONS. EMS HAS BEEN CONTACTED AND IN ROUTE. WILL CONTACT RN ONCE PT HAS LEFT FACILITY. PT AND FAMILY UPDATED ON TRANSFER.
[2019-07-03 09:15] VITALS: BP 104/80
[2019-07-03 09:30] VITALS: BP 106/81
[2019-07-03 09:45] VITALS: BP 105/79
== END 2019-07-03 10:45 | disposition short-term general hospital (02) | DRG 282 ==
LOC: EDUNIT# 09:13 → ER 09:14 → 4TH 10:36 → UNDOADMOB 10:36 → 4TH 10:36 → ICU 07-03 08:48 → 4TH 07-03 08:48 → UNDODISOB 07-03 10:45
PROVIDERS: ADMIT Internal Medicine Cardiovascular Disease; ATTEND Internal Medicine Cardiovascular Disease
PROC: 4A0 Measurement and Monitoring, Physiological Systems, Measurement (ICD-10-PCS; principal; 2019-07-03)
PROC: B2111ZZ Fluoroscopy of Multiple Coronary Arteries using Low Osmolar Contrast (ICD-10-PCS; 2019-07-03)
PROC: B2151ZZ Fluoroscopy of Left Heart using Low Osmolar Contrast (ICD-10-PCS; 2019-07-03)
PROC: B3101ZZ Fluoroscopy of Thoracic Aorta using Low Osmolar Contrast (ICD-10-PCS; 2019-07-03)
DX: I21.4 Non-ST elevation (NSTEMI) myocardial infarction (principal); I25.10 Atherosclerotic heart disease of native coronary artery without angina pectoris; I49.3 Ventricular premature depolarization; I10 Essential (primary) hypertension; F17.210 Nicotine dependence, cigarettes, uncomplicated; E78.5 Hyperlipidemia, unspecified; Z79.82 Long term (current) use of aspirin; Z82.49 Family history of ischemic heart disease and other diseases of the circulatory system
CPT/HCPCS: 36221; 36415; 71045; 80053; 83735; 83874; 84484; 85025; 85610; 85730; 93005; 93041; 93458; 96374